=== PATIENT | female | born 1970 | race Caucasian/White ===

== ENCOUNTER 2023-09-16 21:14 | Emergency (ER) | payer BC ==
[2023-09-16 21:23] VITALS: RESP 18
--- NOTE | 2023-09-16 22:33 | ED ---
General Adult HPI - General Source: patient, RN notes reviewed Mode of arrival: EMS Limitations: no limitations <Kalpana Price - Last Filed: 09/16/23 22:31> <Shoaib Dan - Last Filed: 09/17/23 01:05> - General Chief complaint: Back Pain/Injury Stated complaint: Back pain Time Seen by Provider: 09/16/23 22:31 - History of Present Illness Initial comments: Quick note: 53-year-old female presents to the emergency department for evaluation of right-sided rib pain radiating to her back. She states that she was attempting to lift someone when she started experiencing this pain. She states that the pain is sudden. (Kalpana Price) Dictation was produced using [employer] dictation software. please excuse any grammatical, word or spelling errors. Chief Complaint: 53-year-old female with chest and back pain History of Present Illness: Patient is a 53-year-old female she was lifting her [id number] who lives with them. She was lifting her leg when all of a sudden she felt a sharp chest and back pain. Patient states that her pain was severe. She called EMS was brought to the ER. She was given morphine and her symptoms improved immensely. States that over the last several months she has had a issue with chest and back pain. Denies any numbness ting or paresthesias to extremities. She describes pain as sharp worse with movement, specially lifting with her left arm The ROS documented in this emergency department record has been reviewed and confirmed by me. Those systems with pertinent positive or negative responses have been documented in the HPI. All other systems are other negative and/or noncontributory. (Shoabi Dan) - Related Data Allergies Allergy/AdvReac Type Severity Reaction Status Date / Time No Known Allergies Allergy Verified 09/16/23 21:23 Review of Systems ROS Other: All systems not noted in ROS Statement are negative. <Kalpana Price - Last Filed: 09/16/23 22:31> ROS Other: All systems not noted in ROS Statement are negative. <Shoaib Dan - Last Filed: 09/17/23 01:05> ROS Statement: Those systems with pertinent positive or pertinent negative responses have been documented in the HPI. Past Medical History Past Medical History: Thyroid Disorder History of Any Multi-Drug Resistant Organisms: None Reported Additional Past Surgical History / Comment(s): rotator cuff Past Psychological History: Anxiety Smoking Status: Current every day smoker Past Alcohol Use History: Occasional Past Drug Use History: None Reported <Kalpana Price - Last Filed: 09/16/23 22:31> General Exam Limitations: no limitations <Kalpana Price - Last Filed: 09/16/23 22:31> <Shoaib Dan - Last Filed: 09/17/23 01:05> - General Exam Comments Initial Comments: Visual Physical Exam Vital signs reviewed General: Well-appearing, nontoxic, no acute distress. Head: Normocephalic, atraumatic Eyes: PERRLA, EOMI ENT: Airway patent Chest: Nonlabored breathing Skin: No visual rash, normal skin tone Neuro: Alert and oriented 3 Musculoskeletal: No gross abnormalities (Kalpana Price) General: Well-appearing, nontoxic, no acute distress. Head: Normocephalic, atraumatic Eyes: PERRLA, EOMI ENT: Airway patent Chest: Nonlabored breathing, pain reproduced with resisted right upper extremity forward flexion Skin: No visual rash, normal skin tone Neuro: Alert and oriented 3 Musculoskeletal: No gross abnormalities (Shoaib Dan) Course Vital Signs 09/16/23 09/17/23 21:19 00:44 Temperature 98.0 F 97.6 F Pulse Rate 69 62 Respiratory 18 18 Rate Blood Pressure 161/102 161/80 O2 Sat by Pulse 99 98 Oximetry Medical Decision Making <Kalpana Price - Last Filed: 09/16/23 22:31> <Shoaib Dan - Last Filed: 09/17/23 01:05> - Medical Decision Making Quick note preformed and electronically signed by Kalpana Price PA-C (Kalpana Price) Was pt. sent in by a medical professional or institution ([facility], [employer], urgent care, hospital, or fdc...) When possible be specific @ -No Did you speak to anyone other than the patient for history (EMS, parent, family, police, friend...)? What history was obtained from this source @ -No Did you review nursing and triage notes (agree or disagree)? Why? @ -I reviewed and agree with nursing and triage notes Were old charts reviewed (outside hosp., previous admission, EMS record, old EKG, old radiological studies, urgent care reports/EKG's, fdc records)? Report findings @ -No old charts were reviewed Differential Diagnosis (chest pain, altered mental status, abdominal pain women, abdominal pain men, vaginal bleeding, musculoskeletal, weakness, fever, dyspnea, syncope, headache, dizziness, GI bleed, back pain, seizure, CVA, palpatations, mental health)? @ -Differential Back Pain: Strain, zoster, cauda equina syndrome, epidural abscess, vertebral osteomyelitis, discitis, fracture, subluxation, disc herniation, DJD, spinal stenosis, dissection, AAA, pancreatitis, peptic ulcer disease, pyelonephritis, kidney stone, this is not meant to be an all-inclusive list. EKG interpreted by me (3pts min.). @ -None done X-rays interpreted by me (1pt min.). @ -X-ray lumbar spine x-ray shows no acute processes CT interpreted by me (1pt min.). @ -None done U/S interpreted by me (1pt. min.). @ -None done What testing was considered but not performed or refused? (CT, X-rays, U/S, labs)? Why? @ -None What meds were considered but not given or refused? Why? @ -None Was smoking cessation discussed for >3mins.? @ -No Were there social determinants of health that impacted care today? How? (Homelessness, low income, unemployed, alcoholism, drug addiction, transpor tation, low edu. Level, literacy, decrease access to med. care, residential, rehab)? @ -No Was there de-escalation of care discussed even if they declined (Discuss DNR or withdrawal of care, Hospice)? DNR status @ -No What co-morbidities impacted this encounter? (DM, HTN, Smoking, COPD, CAD, Cancer, CVA, ARF, Chemo, Hep., AIDS, mental health diagnosis, sleep apnea, morbid obesity)? @ -None Was patient admitted / discharged? Hospital course, mention meds given and route, prescriptions, significant lab abnormalities, going to OR and other pertinent info. @ -53-year-old female presents to the emergency department with chest and back strain after lifting her [id number]'s leg. Signs as able. Patient well- appearing. Pain is reproducible at bedside. Patient given analgesics. Feeling significantly improved. X-rays negative. Patient discharged with [place] prescription Did you discuss the management of the patient with other professionals (professionals i.e. , PA, [employer], lab, RT, psych nurse, social services analyst, clerical office worker, teacher, police liaison officer, case worker)? Give summary @ -No Was critical care preformed (if so, how long)? @ -No Undiagnosed new problem with uncertain prognosis? @ -No Drug Therapy requiring intensive monitoring for toxicity (Heparin, Nitro, Insulin, Cardizem)? @ -No Were any procedures done? @ -No Diagnosis/symptom? Acute, or Chronic, or Acute on Chronic? Uncomplicated (without systemic symptoms) or Complicated (systemic symptoms)? @ -Chest and back strain Side effects of treatment? @ -No Exacerbation, Progression, or Severe Exacerbation? @ -No Poses a threat to life or bodily function? How? (Chest pain, [place], AR, pneumonia, PE, COPD, DKA, ARF, appy, cholecystitis, CVA, Diverticulitis, Homicidal, Suicidal, threat to staff... and all critical care pts) @ -No (Shoaib Dan) Disposition <Kalpana Price - Last Filed: 09/16/23 22:31> Is patient prescribed a controlled substance at d/c from ED?: No Time of Disposition: 01:05 <Shoaib Dan - Last Filed: 09/17/23 01:05> Clinical Impression: Chest wall muscle strain Disposition: HOME SELF-CARE Condition: Good Instructions (If sedation given, give patient instructions): Acute Low Back Pain (ED), Hydrocodone/Acetaminophen (By mouth) Referrals: Obi Hendricks DO [Primary Care Provider] - 1-2 days
[2023-09-17 00:44] VITALS: BP 161/80; PULSE 62; TEMP 97.6
[2023-09-17] MEDS: HYDROcodone/APAP 5-325MG 1 EACH TAB PO STA (00:45)
--- NOTE | 2023-09-17 00:56 | XR ---
EXAM: XR Lumbosacral Spine, 2 or 3 Views CLINICAL HISTORY: injury to back while moving mother in law. Pt states pain to right middle of back radiating to chest. TECHNIQUE: Frontal and lateral views of the lumbar spine and sacrum. COMPARISON: No relevant prior studies available. FINDINGS: Vertebrae: No fracture or subluxation. Disc spaces: Moderate degenerative disc disease characterized by disc height loss, worse at L5-S1, and osteophyte formation. Soft tissues: Unremarkable. Other findings: T-shaped IUD in central pelvis. IMPRESSION: 1. No fracture or subluxation. 2. Moderate degenerative disc disease
--- NOTE | 2023-09-17 00:59 | XR ---
EXAM: XR Right Ribs, 2 Views CLINICAL HISTORY: ITS.REASON XR Reason: pain TECHNIQUE: Frontal and oblique views of the right ribs. 5 images COMPARISON: No relevant prior studies available. FINDINGS: Lungs: Unremarkable as visualized. No consolidation. Pleural space: Unremarkable. No pneumothorax. Bones/joints: No fracture or dislocation. IMPRESSION: No fracture
--- NOTE | 2023-09-17 01:07 | ED ---
Disposition Clinical Impression: Chest wall muscle strain Disposition: HOME SELF-CARE Condition: Good Instructions (If sedation given, give patient instructions): Hydrocodone/Acetaminophen (By mouth), Acute Low Back Pain (ED) Prescriptions: HYDROcodone/APAP 5-325MG [[place] 5-325] 1 tab PO Q6HR PRN 3 Days #12 tab PRN Reason: Severe Pain Is patient prescribed a controlled substance at d/c from ED?: Yes Referrals: Obi Hendricks DO [Primary Care Provider] - 1-2 days Time of Disposition: 01:07
== END 2023-09-17 01:11 | disposition home or self-care (01) ==
LOC: EC 21:14
DX: S29.011A Strain of muscle and tendon of front wall of thorax, initial encounter (principal); F17.200 Nicotine dependence, unspecified, uncomplicated; X50.0XXA Overexertion from strenuous movement or load, initial encounter
CPT/HCPCS: 72100; 99284